=== PATIENT | male | born 1995 | race Caucasian/White ===

== ENCOUNTER 2024-12-16 18:43 | Emergency (ER) | payer SELFPAY ==
[2024-12-16 18:45] VITALS: BP 126/91; PULSE 92; RESP 18; TEMP 36.5; O2SAT 97; BMI 21.2
[2024-12-16 19:24] LABS: Basophils % 0.4 %; Eosinophils # 0.3 10^3/uL (0.0-0.8); Eosinophils % 4.8 %; Hematocrit 46.5 % (37-53); Lymphocytes # 1.8 10^3/uL (0.8-4.8); Lymphocytes % 32.4 %; Mean Corpuscular HGB Conc 34.8 g/dL (30-55); Mean Corpuscular Hemoglobin 30.1 pg (27-33); Mean Corpuscular Volume 86.4 fl (82-101); Mean Platelet Volume 11.9 fL (7.4-10.4); Monocytes # 0.9 10^3/uL (0.2-0.9); Monocytes % 15.7 %; Neutrophils # 2.55 10^3/uL (1.8-7.7); Neutrophils % 46.5 %; Nucleated Red Blood Cells % 0 %; Platelet Count 173 10^3/cmm (157-399); Red Blood Count 5.38 10^6/uL (3.85-5.65); Red Cell Distribution Width 11.9 % (12.1-15.1); White Blood Count 5.47 10^3/uL (3.29-11.43)
[2024-12-16 19:40] LABS: Alanine Aminotransferase 16 U/L (0-41); Albumin Level 4.6 g/dL (3.5-5.2); Alkaline Phosphatase 70 U/L (40-130); Anion Gap 16.9 (5-19); Aspartate Amino Transferase 21 U/L (0-40); Blood Urea Nitrogen 14 mg/dL (6-20); Calcium 9.7 mg/dL (8.5-10.5); Carbon Dioxide 25 mmol/L (22-29); Chloride 100 mmol/L (98-107); Globulin 3.1 g/dL (1.3-4.6); Glomerular Filtration Rate 114.3 mL/min (90-130); Glucose 91 mg/dL (65-115); Lipase 60 U/L (13-60); Osmolality Calculated 286 mOsm/kg (285-295); Potassium 3.9 mmol/L (3.5-5.1); Sodium 138 mmol/L (136-145); Total Bilirubin 0.6 mg/dL (0.15-1.2); Total Protein 7.7 g/dL (6.6-8.7)
--- NOTE | 2024-12-16 19:41 | ED_ITS ---
HPI - General Adult 2 General: Chief complaint: Upper Respiratory Infection Stated complaint: body aches v/n/d Time Seen by Provider: 12/16/24 19:26 Source: patient Mode of arrival: ambulatory Limitations: no limitations History of Present Illness: Patient is a 29-year-old male presents to ED today with a complaint of nausea, vomiting, diarrhea, subjective fevers, chills, body aches. Symptoms started a week ago. He was around his significant other and was positive for influenza A. He reportedly had an episode of vomiting today had a small amount of bright red blood in it thus prompting his significant other to make him come to the emergency department for evaluation. Onset (ago): day(s) Severity: mild Relieving factors: none Exacerbating factors: none Associated symptoms: Reports nausea and vomiting; Deny chest pain, dyspnea, headache(s) or rash Treatments prior to arrival: none Related Data Allergies Allergy/AdvReac Type Severity Reaction Status Date / Time No Known Drug Allergies Allergy Unknown Verified 12/16/24 18:55 Review of Systems 2 Const: Reports: fever(s) (subjective), chills and body aches ENMT: Denies: throat pain, odynophagia, ear or mastoid pain, nasal discharge, nasal congestion or sinus pain Card: Denies: chest pain Resp: Denies: dyspnea, productive cough or non-productive cough GI: Reports: nausea, vomiting and diarrhea; Denies: abdominal pain : Denies: flank pain or dysuria Musc: Denies: neck pain, back pain, extremity pain or joint swelling Skin/Breast: Denies: rash Neuro: Denies: headache(s) or dizziness Physical Exam 2 Const: COMMON NORMALS: no acute distress, average body habitus, no limitations, healthy appearing, alert and well nourished Resp: COMMON NORMALS: normal respiratory effort and clear to auscultation bilaterally AUSCULTATION: clear to auscultation bilaterally Cardio: COMMON NORMALS: regular rate and regular rhythm RATE: regular rate RHYTHM: regular rhythm GI: COMMON NORMALS: Normal to inspection, nondistended, normoactive bowel sounds present, Soft to palpation, non-tender, No hepatosplenomegaly present and no masses PALPATION: Yes Soft to palpation and Yes No hepatosplenomegaly present : COMMON NORMALS: Yes no CVA tenderness BLADDER/KIDNEY EXAM: Yes no CVA tenderness Back/Pelvis: COMMON NORMALS: no CVA tenderness Extremity: GENERAL: Yes normal exam except as noted Neuro: RAMYA COMA SCALE: document GCS findings Ramya coma scale eye opening: Spontaneous [place] coma scale verbal response: Orientated Ramya coma scale motor response: Obey commands Ramya coma scale total score: 15 S ENSORIUM/ORIENTATION: Yes alert Skin: COMMON NORMALS: no rashes or lesions noted GENERAL SKIN EXAM: no rashes or lesions noted Course 2 Vital Signs: Vital signs: Vital Signs Temperature 97.7 F 12/16/24 18:45 Pulse Rate 92 12/16/24 18:45 Respiratory Rate 18 12/16/24 18:45 Blood Pressure 126/91 12/16/24 18:45 Pulse Oximetry 97 12/16/24 18:45 Oxygen Delivery Me thod Room Air 12/16/24 18:45 MDM - General Adult Medical Decision Making Patient's labs are unremarkable. He is positive for influenza A. Patient outside window for Tamiflu. Discussed conservative therapies at home. I do not have any concern for life-threatening etiologies regarding the small amount of bright red blood that was found in his emesis earlier today. Return to ED precautions discussed. Medical Records I reviewed the patient's medical records. Lab Data I reviewed the patient's lab results. 12/16/24 19:17 12/16/24 19:17 Laboratory Results WBC 5.47 10^3/uL (3.29-11.43) 12/16/24 19:17 RBC 5.38 10^6/uL (3.85-5.65) 12/16/24 19:17 Hgb 16.20 g/dL (11.27-16.99) 12/16/24 19:17 Hct 46.5 % (37-53) 12/16/24 19:17 MCV 86.4 fl (82-101) 12/16/24 19:17 MCH 30.1 pg (27-33) 12/16/24 19:17 MCHC 34.8 g/dL (30-55) 12/16/24 19:17 RDW 11.9 % (12.1-15.1) L 12/16/24 19:17 Plt Count 173 10^3/cmm (157-399) 12/16/24 19:17 MPV 11.9 fL (7.4-10.4) H 12/16/24 19:17 Neut % (Auto) 46.5 % 12/16/24 19:17 Lymph % (Auto) 32.4 % 12/16/24 19:17 Smith % (Auto) 15.7 % 12/16/24 19:17 Eos % (Auto) 4.8 % 12/16/24 19:17 Baso % (Auto) 0.4 % 12/16/24 19:17 Neut # (Auto) 2.55 10^3/uL (1.8-7.7) 12/16/24 19:17 Lymph # (Auto) 1.8 10^3/uL (0.8-4.8) 12/16/24 19:17 Smith # (Auto) 0.9 10^3/uL (0.2-0.9) 12/16/24 19:17 Eos # (Auto) 0.3 10^3/uL (0.0-0.8) 12/16/24 19:17 Baso # (Auto) 0.0 10^3/uL (0.0-0.1) 12/16/24 19:17 Nucleated RBC % (auto) 0 % 12/16/24 19:17 Nucleated RBCs # 0.0 /100WBC 12/16/24 19:17 Sodium 138 mmol/L (136-145) 12/16/24 19:17 Potassium 3.9 mmol/L (3.5-5.1) 12/16/24 19:17 Chloride 100 mmol/L (98-107) 12/16/24 19:17 Carbon Dioxide 25 mmol/L (22-29) 12/16/24 19:17 Anion Gap 16.9 (5-19) 12/16/24 19:17 BUN 14 mg/dL (6-20) 12/16/24 19:17 Creatinine 0.8 mg/dL (0.7-1.2) 12/16/24 19:17 GFR Calculation 114.3 mL/min (90-130) 12/16/24 19:17 Glucose 91 mg/dL (65-115) 12/16/24 19:17 Calculated Osmolality 286 mOsm/kg (285-295) 12/16/24 19:17 Calcium 9.7 mg/dL (8.5-10.5) 12/16/24 19:17 Total Bilirubin 0.6 mg/dL (0.15-1.2) 12/16/24 19:17 AST 21 U/L (0-40) 12/16/24 19:17 ALT 16 U/L (0-41) 12/16/24 19:17 Alkaline Phosphatase 70 U/L (40-130) 12/16/24 19:17 Total Protein 7.7 g/dL (6.6-8.7) 12/16/24 19:17 Albumin 4.6 g/dL (3.5-5.2) 12/16/24 19:17 Globulin 3.1 g/dL (1.3-4.6) 12/16/24 19:17 Lipase 60 U/L (13-60) 12/16/24 19:17 Coronavirus (PCR) Negative (Negative) 12/16/24 19:03 Influenza A (PCR) Positive (Negative) 12/16/24 19:03 Influenza Type B (PCR) Negative (Negative) 12/16/24 19:03 RSV (PCR) Negative (Negative) 12/16/24 19:03 No radiology studies performed this visit Discharge Plan Discharge Patient Disposition: Home Clinical Impression: Influenza A Condition: Stable Discharge Orders: Discharge ED (Routine); Ordered 12/16/24 Ordered By: Linnea Orta Patient Instructions: Influenza (DC) Print Language: Czech Coding Level of Care Code ED Vamp Maker for Dwaine Kline
[2024-12-16 19:45] LABS: Influenza A POSITIVE (Negative); Influenza B NEGATIVE (Negative); Respiratory Syncytial Virus Ce NEGATIVE (Negative); SARS-CoV-2 PCR NEGATIVE (Negative)
[2024-12-16 20:22] VITALS: BP 118/80; PULSE 84; RESP 16; O2SAT 97
== END 2024-12-16 20:23 | disposition home or self-care (01) ==
PROVIDERS: Emergency Medicine; Emergency Provider Physician Assistant
DX: J10.1 Influenza due to other identified influenza virus with other respiratory manifestations (principal); Z11.52 Encounter for screening for COVID-19
CPT/HCPCS: 36415; 80053; 83690; 85025; 87637; 99283